=== PATIENT | female | born 1965 | race Caucasian/White ===

== ENCOUNTER 2020-07-13 20:27 | Emergency (ER) | payer BC ==
[~2020-07-13] VITALS: Ht 162.6 cm; Wt 93.7 kg
[2020-07-13] MEDS ORDERED: ondansetron 4mg rapidly disintigrating tab PO ONE (22:20)
[2020-07-14] MEDS ORDERED: ONDA4TAB6 PO (00:09)
[2020-07-14 00:18] VITALS: BP 135/75
== END 2020-07-14 00:12 | disposition home or self-care (01) ==
LOC: ER 20:28
DX: S06.0X0A Concussion without loss of consciousness, initial encounter (principal); S80.812A Abrasion, left lower leg, initial encounter; R51.9 Headache, unspecified; R11.0 Nausea; Z88.5 Allergy status to narcotic agent; Z79.899 Other long term (current) drug therapy; W19.XXXA Unspecified fall, initial encounter; Y93.89 Activity, other specified; Y92.89 Other specified places as the place of occurrence of the external cause; Y99.8 Other external cause status
CPT/HCPCS: 70450; 70486; 72125; 99285

== ENCOUNTER → 2023-07-05 | Outpatient (CLI) | payer BC ==
[~2023-07-05] MED LIST: ONDA4TAB6 PO
== END | disposition home or self-care (01) ==
LOC: RAD 14:49
PROVIDERS: ATTEND Pediatrics Sports Medicine
DX: M23.321 Other meniscus derangements, posterior horn of medial meniscus, right knee (principal); M71.21 Synovial cyst of popliteal space [Baker], right knee; M25.561 Pain in right knee; M25.461 Effusion, right knee; M25.361 Other instability, right knee
CPT/HCPCS: 73721

== ENCOUNTER 2024-03-18 16:53 | Emergency (ER) | payer BC ==
[~2024-03-18] VITALS: Ht 162.6 cm; Wt 111.8 kg
[2024-03-18 17:21] LABS: BASOPHILS # (AUTO) 0.1 X10'3 (0-0.2); BASOPHILS % (AUTO) 0.7 % (0-1); EOSINOPHILS # (AUTO) 0.2 X10'3 (0-0.9); EOSINOPHILS % (AUTO) 1.8 % (0-6); HEMATOCRIT 44.5 % (35.0-45.0); HEMOGLOBIN 14.9 g/dl (12.0-16.0); LYMPHOCYTES # (AUTO) 2.8 X10'3 (1.1-4.8); LYMPHOCYTES % (AUTO) 23.5 % (21-51); MEAN CORPUSCULAR HEMOGLOBIN 32.1 PG (27.0-31.0); MEAN CORPUSCULAR HGB CONC 33.4 g/dL (33.0-36.5); MEAN CORPUSCULAR VOLUME 96.3 FL (78-98); MEAN PLATELET VOLUME 9.4 FL (7.4-10.4); MONOCYTES # (AUTO) 0.9 X10'3 (0-0.9); MONOCYTES % (AUTO) 7.4 % (2-12); NEUTROPHILS # (AUTO) 7.8 X10'3 (1.8-7.7); NEUTROPHILS % (AUTO) 66.6 % (42-75); PLATELET COUNT 345 X10'3 (140-440); RED BLOOD COUNT 4.62 X10'6 (4.20-5.60); RED CELL DISTRIBUTION WIDTH 13.5 % (11.5-14.5); WHITE BLOOD COUNT 11.7 X10'3 (4.5-11.0)
[2024-03-18 17:33] LABS: ALANINE AMINOTRANSFERASE 20 U/L (12-78); ALBUMIN/GLOBULIN RATIO 1.1 (1.1-1.5); ALKALINE PHOSPHATASE 84 IU/L (46-116); ANION GAP 6 (8-16); ASPARTATE AMINO TRANSFERASE 20 U/L (10-37); BILIRUBIN,TOTAL 0.4 MG/DL (0.1-1.0); BLOOD UREA NITROGEN 22 MG/DL (7-18); BUN/CREATININE RATIO 16.8 (10.0-20.0); CALCIUM 9.6 MG/DL (8.5-10.1); CHLORIDE 105 MMOL/L (99-107); CREATININE 1.31 MG/DL (0.40-0.90); GLUCOSE 106 MG/DL (70-104); LIPASE 38 U/L (16-77); POTASSIUM 4.1 MMOL/L (3.5-5.1); SODIUM 140 MMOL/L (135-145); TOTAL PROTEIN 7.8 G/DL (6.4-8.2); eCRCL 40 ML/MIN; eGFR 42 ML/MIN
[2024-03-18] MEDS: ondansetron/PF 4mg/2ml inj IV ONE (19:47)
[2024-03-18] MEDS: fentaNYL/PF 50MCG/1 ML 2ML syringe IV ONE (19:47)
[2024-03-18] MEDS: normal saline 1000ml 1,000 ML IV ONE (19:50)
[2024-03-18] MEDS: acetaminophen 1,000mg/100ml IV 100 ML IV ONE (19:50)
[2024-03-18] MEDS: ketorolac trometh 15mg/ml vial 15 MG/ML ML IV ONE (20:41)
[2024-03-18] MEDS: OXYcodone (OXYCONTIN) Ext Release 15 MG TAB.SR.12H PO ONE (20:42)
[2024-03-18] MEDS: ondansetron 4mg rapidly disintigrating tab PO ONE (21:43)
[2024-03-18 21:52] LABS: BILIRUBIN,URINE NEGATIVE (Neg); CLARITY,URINE SLIGHTLY CLOUDY (Clear); COLOR,URINE YELLOW (Yellow); GLUCOSE, URINE NEGATIVE (Neg); KETONES,URINE 15 mg/dl (Neg); LEUKOCYTE ESTERASE ,URINE NEGATIVE (Neg); NITRITES, URINE NEGATIVE (Neg); OCCULT BLOOD,URINE TRACE-INTACT (Neg); PROTEIN,URINE NEGATIVE (Neg); UROBILINOGEN,URINE 0.2 E.U/dL (0.2-1.0)
[2024-03-18 21:53] LABS: UA COLLECTION TYPE NON-SPECIFIED
[2024-03-18 21:57] LABS: BACTERIA,URINE FEW /HPF (Neg); SQUAMOUS EPITHELIAL CELL,UR FEW /LPF (FEW); WBC,URINE 0-4 /HPF (0-4)
[2024-03-18 22:02] LABS: URINE HCG NEGATIVE (NEG)
[2024-03-18] MEDS ORDERED: FLO0.4C PO (22:10)
[2024-03-18] MEDS ORDERED: ONDA-245 PO (22:10)
[2024-03-18] MEDS ORDERED: HYDR-3965 PO (22:10)
[2024-03-18] MEDS: HYDROcodone/acetaminophen 10/325mg tab PO ONE (22:20)
[2024-03-18] MEDS: tamsulosin 0.4mg capsule PO ONE (22:20)
[2024-03-18 22:24] VITALS: BP 141/86; PULSE 58; RESP 18; TEMP 98.5; O2SAT 97
== END 2024-03-18 22:28 | disposition home or self-care (01) ==
LOC: ER 16:53
DX: N20.0 Calculus of kidney (principal); Z79.899 Other long term (current) drug therapy; Z88.5 Allergy status to narcotic agent
CPT/HCPCS: 36415; 74176; 80053; 81001; 81025; 83690; 85025; 96374; 96375; 99285; J0131; J1885; J2405; J3010; J7030

== ENCOUNTER 2024-11-03 13:56 | Emergency (ER) | payer BC ==
[~2024-11-03] VITALS: Ht 162.6 cm; Wt 107.2 kg
[~2024-11-03 13:56] MED LIST changes: +ONDA-245 PO
[2024-11-03 14:01] VITALS: BP 168/86; PULSE 107; RESP 18; TEMP 98.9; O2SAT 97
--- NOTE | 2024-11-03 14:33 | Physician Documentation ---
History of Present Illness ~ Chief Complaint: Bite-animal Stated Complaint: DOG BITE Time Seen by MD: 14:09 OK to notify your PCP?: Yes Primary Medical Doctor: JOSSE Source: patient Mode of Arrival: POV Exam Limitations: no limitations HPI 59-year-old female presents after she broke up a dog fight between her dogs and has multiple superficial dog bites to bilateral upper extremities. She has not take any blood thinners. Both dogs are vaccinated. She is unsure when her last tetanus shot was. Tetanus within 5 years?: No Medication Reconciliation Allergies: Coded Allergies: codeine (Verified Allergy, Unknown, 11/03/24) Scheduled Amox Tr/Potassium Clavulanate (Augmentin 875-125 Tablet), 1 TAB PO Q12H Ondansetron 8mg ODT (Ondansetron Odt), 1 TAB PO Q6H Ondansetron Hcl (Zofran), 1 TAB PO Q6H Past Medical History Past Medical History: No Pertinent History Past Surgical History: noncontributory Drug Use: none Lives In: Home Review of Systems All Other Systems at this time: Reviewed and Negative Physical Exam Vital Signs: RN Vital Signs have been reviewed: Yes, Temperature: 98.9, Source: Oral, Heart Rate: 107, Respiratory Rate: 18, BP: 168/86, Pulse Oximetry: 97, Weight: 107.250 Oxygen Flow Rate: 0 Pulse Oximetry Reflects: adequate oxygenation Physical Exam General: Alert, no apparent distress. HEENT: PERRL, EOMI, no injection, moist mucous membranes. Neck: Full range of motion. Respiratory: Lungs clear, no respiratory distress. Chest: No accessory muscle use. Cardiovascular: Regular rate and rhythm, no murmurs. Gastrointestinal: Soft, nontender, nondistended. Bowels sounds present. Extremities: Full range motion of bilateral arms and hands, no deformities noted. Neurologic: Oriented x4. Psychiatric: Normal mood and affect. Skin: Normal color, warm and dry. 1 laceration to right wrist: approx 4 cm in length. 3 lacerations approx 1-2 cm to left hand. 1 laceration and 1 puncture wound to left upper arm with hematoma present. Procedures Procedures Laceration repair of right hand, left hand and left upper arm. Verbal consent obtained for procedure. Laceration/Wound Repair Laceration/Wound Repair : Anesthesia: Lidocaine w/ Epi Prep: irrigated by nurse Irrigated w/ Saline (mls): 1000 Debrided: minimal Undermining: none Margins: flaps aligned Foreign Body: not identified Repaired: skin Wound Repaired With: sutures Suture Size/Type: 4-0, ethilon Number of Superficial Sutures: 6 Dressing Applied: simple, non-adherent Sling Applied?: No Tolerated Procedure Well?: yes, no complications Procedure Note I loosely approximated the laceration at right wrist (2 sutures) and 3 lacerations to left hand (3 sutures total, one in each laceration) and 1 laceration to left upper arm (1 suture) with loose simple interrupted sutures. Progress Results/Orders Reviewed/noted all lab results: Yes Results/Orders Orders - EBONIE GILL Laceration/I&D Tray Set Up (11/03/24 ) Completed Orders - EBONIE GILL Tetanus/Pertuss/Diph Acell/Pf (Boostrix (11/03/24 14:35) Lidocaine 1% W/Epi 1:100,000 (Xylocaine (11/03/24 14:35) Medications Received in ER Medications (Trade) Dose Ordered Sig/Maxx Route PRN Reason Start Time Stop Time Status Last Admin Dose Admin (Boostrix vaccine syringe) 0.5 ml ONCE ONCE IMVAC 11/03/24 14:35 11/03/24 14:36 DC 11/03/24 14:38 0.5 ML Vital Signs 11/03/24 14:01 Temp 98.9 Pulse 107 Resp 18 B/P (MAP) 168/86 Pulse Ox 97 O2 Flow Rate 0 Medical Decision Making Additional info obtained from: old records, family Findings The patient presents with multiple lacerations from dog bites. She is able to move all extremities. He was bitten by dogs who were up-to-date on the rabies vaccines so no rabies prophylaxis was given. I updated her tetanus vaccine as she is unsure when her last one was. She has already taken amoxicillin 500 mg 3 times daily for an infection in her tooth and she has been taking this medication for the past 2 days. I will switch her over to Augmentin for better coverage of both the tooth and the dog bite wounds. I loosely approximated the edges of the lacerations to the right hand, left hand and left upper arm these were quite open. We discussed that this wounds will have to heal from secondary closure. We discussed wound care instructions and when to have sutures removed. Discussed the follow up plan as well. Differential Dx:Considerations: Include: Cellulitis, Hematoma, Retained foreign body Departure Disposition: 01 HOME / SELF CARE / HOMELESS Impression: Primary Impression: Dog bite Condition: Stable Discharge Instructions: Animal Bite, Adult Additional Instructions: Please keep wounds clean and dry. Please refrain from swimming, [place] water or other sources of unclean water. Can place triple antibiotic ointment to suture sites. You have sutures that will need to be removed in the next 10-12 days. You have 2 sutures to the right wrist, 3 sutures total to left hand, 1 suture to left upper arm. You may return back here, go to primary care provider or go to an urgent care to have the sutures removed. You have been placed on antibiotics or please take the entire antibiotic course. If you notice any signs of worsening infection please be seen as you may need a secondary antibiotic. Referrals: NO PRIMARY CARE PROVIDER (PCP) Prescriptions Amox Tr/Potassium Clavulanate (Augmentin 875-125 Tablet) 1 Each Tablet 1 TAB PO Q12H for 7 Days, #14 TAB Prov: EBONIE GILL 11/03/24 Education Educated: Patient Educated regarding: diagnosis, treatment, prognosis, need for follow up Additional Comment Medical Screen Exam This patient recieved a medical screening examination. After reviewing the individual's medical complaints with presenting symptoms and performing an appropriate physical examination, it was determined that no immediate life- threatening emergency medical condition is present. This individual is also not a women having contractions. Signature Scribe Signature: . Attestation: Scribed for Ebonie Gill by Ebonie Whitfield NP . 11/03/24 18:08 Parts of this note were created using [employer] voice recognition software program. While efforts were made to correct any mistakes made by this voice recognition software program, nonsensical phrases may remain in this note. In addition, there may be errors and syntax, grammar, content and spelling. EBONIE GILL Nov 03, 2024 14:33
[2024-11-03] MEDS: TETanus/Pertussis (Acell)/Diphther VAC/PF (Tdap-Adult) 0.5ml syringe IMVAC ONE (14:38)
[2024-11-03] MEDS: LIDOcaine 1% W/epiNEPHrine 1:100,000 20ml vial SQ ONE (14:47)
[2024-11-03] MEDS ORDERED: AMOX-117 PO (14:57)
== END 2024-11-03 16:12 | disposition home or self-care (01) ==
LOC: ER 13:58
DX: S61.411A Laceration without foreign body of right hand, initial encounter (principal); S61.412A Laceration without foreign body of left hand, initial encounter; Z88.5 Allergy status to narcotic agent; Z79.899 Other long term (current) drug therapy; W54.0XXA Bitten by dog, initial encounter; Y93.89 Activity, other specified; Y92.89 Other specified places as the place of occurrence of the external cause; Y99.8 Other external cause status
CPT/HCPCS: 12002; 90471; 90715; 99283; J7030; A6449

== ENCOUNTER 2025-04-04 11:47 | Emergency (ER) | payer BC ==
[~2025-04-04] VITALS: Ht 162.6 cm; Wt 108.1 kg
--- NOTE | 2025-04-04 11:57 | ELECTROCARDIOGRAPH REPORT ---
[facility] Test Date: 2025-04-04 Test Time: 11:51:14 Pat Name: CAROLYN ROMO Department: EMERGENCY ROOM Patient ID: [facility]-[id number] Room: Gender: F Director Network Development: MADDIE : 1965 Requested By: ARAMIS ORTIZ Order Number: [id number] Reading MD: Dr. Danny Meng Measurements Intervals [place] Rate: 117 P: 39 DE: 152 QRS: 28 QRSD: 79 T: 18 QT: 322 QTc: 450 Interpretive Statements Sinus tachycardia Multiform ventricular premature complexes Aberrant complex Borderline T wave abnormalities Electronically Signed On 04-05-2025 11:18:[address] Danny Meng Please click the below link to view image of tracing.
[2025-04-04 12:11] LABS: MEAN PLATELET VOLUME 9.5 FL (7.4-10.4); RED CELL DISTRIBUTION WIDTH 13.3 % (11.5-14.5)
[2025-04-04 12:33] LABS: CREATININE 0.89 MG/DL (0.40-0.90); PRO BRAIN NATRIURETIC PEPTIDE 36 PG/ML (0-125); TOTAL CARBON DIOXIDE 27.3 MMOL/L (24-32); eCRCL 57 ML/MIN; eGFR 64 ML/MIN
--- NOTE | 2025-04-04 13:12 | RADIOLOGY REPORT ---
DI CHEST,SINGLE VIEW, HISTORY: CP COMPARISON: None None TECHNICAL DATA: 1 view of the chest was obtained. FINDINGS: Lines and tubes: None Cardiomediastinal silhouette: normal Pulmonary vasculature: normal Lung expansion: normal Lung airspace: normal Lung interstitium: normal Pleura: normal Pneumothorax: no Bones: Unremarkable Other: no IMPRESSION: No acute intrathoracic abnormality.
[2025-04-04] MEDS ORDERED: iohexol 300mg/ml 100ml inj. ONE ×2 (16:34→17:58)
--- NOTE | 2025-04-04 17:28 | ELECTROCARDIOGRAPH REPORT ---
[facility] Test Date: 2025-04-04 Test Time: 17:25:29 Pat Name: CAROLYN ROMO Department: [facility] Patient ID: [facility]-[id number] Room: Gender: F Senior Python Developer: : 1965 Requested By: ARAMIS ORTIZ Order Number: [id number] Reading MD: Dr. Danny Meng Measurements Intervals [place] Rate: 75 P: 43 TN: 138 QRS: 33 QRSD: 86 T: 30 QT: 375 QTc: 419 Interpretive Statements Sinus rhythm Baseline wander in lead(s) V3 Electronically Signed On 04-05-2025 11:17:[address] Danny Meng Please click the below link to view image of tracing.
[2025-04-04] MEDS: normal saline 1000ml 1,000 ML IV ONE (18:17)
--- NOTE | 2025-04-04 18:39 | RADIOLOGY REPORT ---
PROCEDURE: CT CT CHEST ABDOMEN PELVIS 04/04/2025 05:51 PM INDICATION: Concern for blackage, food bolus Comparison Study: CT CT ABDOMEN PELVIS on DOS: 03/18/24 TECHNIQUE: Axial images were obtained and reformatted in coronal and sagittal planes. All CT scans at this medical facility are performed using dose modulation techniques as appropriate to a performed exam including the following: Automated exposure control was utilized; adjustment of the MA and/or KV according to patient size; and use of iterative reconstruction technique. CT Dose: CTDI volume is 36.75 mGy. Dose-length product is 2404.73 mGy*cm FINDINGS: Chest: The Upper Lung is outside [id number]. Heart size is within normal limits. No evidence of aortic aneurysm or dissection. The pulmonary trunk is normal in size. No significant mediastinal lymphadenopathy. No pneumothorax, pleural effusion or focal airspace consolidation of the visualized lungs. The soft tissues unremarkable. No evidence of acute osseous abnormalities. Abdomen and Pelvis: Liver, spleen, gallbladder, and adrenal glands are unremarkable. Hypodensity of the pancreatic head which may be from fatty infiltration. Otherwise, the pancreas is unremarkable. Mild left renal pelviectasis. Left renal scarring. Otherwise, kidneys, ureters and urinary bladder are unremarkable. Status post hysterectomy. Mild wall thickening of the distal esophagus. Small hiatal hernia. Bowel loops unremarkable. Appendix is unremarkable. Moderate to large amount of fecal material within the colon. No evidence of intraperitoneal free air or free fluid. No evidence of aortic aneurysm or dissection. Minimal atherosclerotic calcification of the aorta. No significant lymphadenopathy. The soft tissues are unremarkable. No evidence of acute osseous abnormalities. Mild chronic loss of superior vertebral body height of L2 on L3. Diffuse demineralization. Sclerotic focus over the right femoral head which may represent a small bone island with a Blastic lesion not excluded. IMPRESSION: The lung apices and lower neck are outside the field of view. Otherwise, no evidence of acute intrathoracic abnormalities. No food bolus is noted within the visualized esophagus. The visualized airways are patent. Small hiatal hernia. Mild wall thickening of the distal esophagus. Correlate for esophagitis. Moderate to large amount of fecal material within the colon. Mild Left renal pelviectasis with nonobstructing calculus are noted.
[2025-04-04] MEDS: ondansetron/PF 4mg/2ml inj IV ONE (19:25)
[2025-04-04] MEDS: glucagon, human recombinant 1mg kit IV ONE (19:26)
[2025-04-04] MEDS: acetaminophen 1,000mg/100ml IV 100 ML IV SCH (19:33)
--- NOTE | 2025-04-04 20:33 | Physician Documentation ---
History of Present Illness ~ Chief Complaint: Shortness of Breath Stated Complaint: SOB/CHEST PAIN Time Seen by MD: 16:11 Primary Medical Doctor: J[facility] Patient is a 60-year-old female that presents to the emergency department for evaluation of acute onset of vomiting with fluid intake. Patient reports that she ate a piece of turkey earlier today did not report feeling like the turkey was stuck or that she had difficulty passing the turkey into her stomach. Patient reports that she developed the hiccups shortly after eating the turkey attempted to drink some water at that time was unable to get the water all the way down her esophagus and the watery immediately started coming back up her throat. Patient denies vomiting reports that the water seem to be blocked by something in her throat and was pulling back up in her throat and coming out of her mouth. Patient reports that she panicked at that time she felt like she could not breathe she was coughing gasping attempted to use her inhaler she thought she was having a asthma attack. Patient presented immediately to the emergency room and has not attempted to drink or eat anything since that time. Patient reports a mild headache but denies any other symptoms at this time. Medication Reconciliation Allergies: Coded Allergies: codeine (Verified Allergy, Unknown, 04/04/25) Scheduled Ondansetron 8mg ODT (Ondansetron Odt), 1 TAB PO Q6H Ondansetron Hcl (Zofran), 1 TAB PO Q6H Past Medical History Past Medical History: No Pertinent History Past Surgical History: noncontributory Smoking Status: Never smoker Drug Use: none Lives In: Home Review of Systems ROS As stated above in the HPI, otherwise all systems are reviewed and negative. Physical Exam Vital Signs: Temperature: 98.0, Source: Oral, Heart Rate: 86, Respiratory Rate: 17, BP: 124/67, Pulse Oximetry: 96, Weight: 108.100 Oxygen Flow Rate: 0 Physical Exam VITALS: Reviewed and as above. GENERAL: Alert, no apparent distress. HEENT: Normocephalic, atraumatic, PERRL, EOMI, dry mucosa, no erythema, patient is currently unable to swallow liquids due to a presumed obstruction or blockage of some type. RESPIRATORY: Lungs clear, normal breath sounds, no respiratory distress. CHEST: No accessory muscle use, no retractions CV: Regular rate, rhythm, no edema, no murmur, No: JVD GI: Soft, non-tender, bowels sounds present, no rebound, guarding, or rigidity BACK: No CVA tenderness, or swelling MUSCULOSKELETAL No deformities, no edema SKIN: Warm and dry, no rash NEURO: Oriented x4, No motor or sensory deficit PSYCH: Normal mood and affect, no agitation Progress Results/Orders Results/Orders Orders - JOVANNY MAHAJAN COT ASSEMBLER * Blood Glucose Assessment * ACHS (04/04/25 17:22) Ct Chest Abdomen Pelvis (04/04/25 18:10) Acetaminophen 1,000mg/100ml Iv (Ofirmev (04/04/25 20:00) Completed Orders - JOVANNY MAHAJAN COT ASSEMBLER Iohexol 300mg/Ml 100ml Inj. (Omnipaque-3 (04/04/25 16:34) Normal Saline 1000ml (0.9% Sodium Chlori (04/04/25 17:25) Ct Chest Abdomen Pelvis (04/04/25 18:10) Iohexol 300mg/Ml 100ml Inj. (Omnipaque-3 (04/04/25 17:58) Glucagon, Human Recombinant (Glucagen In (04/04/25 18:55) Ondansetron Inj. (Zofran 4mg/2ml Vial) (04/04/25 18:55) Medications Received in ER Medications (Trade) Dose Ordered Sig/Maxx Route PRN Reason Start Time Stop Time Status Last Admin Dose Admin Sodium Chloride 1,000 ml @ 1,000 mls/hr ONCE ONCE IV 04/04/25 17:25 04/04/25 18:24 DC 04/04/25 18:17 1,000 MLS/HR (Glucagen inj) 1 mg ONCE ONCE IV 04/04/25 18:55 04/04/25 18:57 DC 04/04/25 19:26 1 MG (Zofran 4mg/2ml vial) 4 mg ONCE ONCE IV 04/04/25 18:55 04/04/25 18:57 DC 04/04/25 19:25 4 MG Acetaminophen 100 ml @ 400 mls/hr Q6H IV 04/04/25 20:00 04/05/25 19:07 04/04/25 19:33 400 MLS/HR Vital Signs 12/2804/04/25 04/04/25 04/04/25 11:56 16:19 16:21 16:23 Temp 97.7 98.0 Pulse 110 90 Resp 20 16 16 B/P (MAP) 167/89 136/86 (103) Pulse Ox 98 99 99 O2 Delivery Room Air* O2 Flow Rate 0 0 0 FiO2 21 04/04/25 04/04/25 04/04/25 04/04/25 18:32 20:03 22:19 22:20 Temp 98.0 98.0 97.0 Pulse 86 86 111 99 Resp 14 17 14 15 B/P (MAP) 124/74 (91) 124/67 (86) 138/61 (86) 138/61 (86) Pulse Ox 97 96 98 98 O2 Delivery Room Air Room Air O2 Flow Rate 0 0 04/04/25 04/04/25 04/04/25 22:30 22:40 22:49 Temp 98.1 Pulse 74 70 72 Resp 14 15 14 B/P (MAP) 122/68 (86) 113/63 (80) 116/64 (81) Pulse Ox 98 97 97 O2 Delivery Room Air Room Air Room Air O2 Flow Rate 0.0 FiO2 21 Laboratory Tests Test 04/04/25 11:55 04/04/25 13:48 04/04/25 17:48 White Blood Count 7.6 Red Blood Count 4.53 Hemoglobin 14.3 Hematocrit 42.0 Mean Corpuscular Volume 92.9 Mean Corpuscular Hemoglobin 31.6 H Mean Corpuscular Hemoglobin Concent 34.0 Red Cell Distribution Width 13.3 Platelet Count 301 Mean Platelet Volume 9.5 Neutrophils (%) (Auto) 58.0 Lymphocytes (%) (Auto) 31.3 Monocytes (%) (Auto) 7.6 Eosinophils (%) (Auto) 2.1 Basophils (%) (Auto) 1.0 Neutrophils # (Auto) 4.4 Lymphocytes # (Auto) 2.4 Monocytes # (Auto) 0.6 Eosinophils # (Auto) 0.2 Basophils # (Auto) 0.1 CBC Comment Sodium Level 143 Potassium Level 4.2 Chloride Level 108 H Carbon Dioxide Level 27.3 Anion Gap 8 Blood Urea Nitrogen 17 Creatinine 0.89 Estimated GFR/1.73 m2 64 BUN/Creatinine Ratio 19.1 Glucose Level 97 Calcium Level 9.6 Troponin I High Sensitivity < 4 L < 4 L Troponin I High Sens Percent Delta Troponin I Hi Sens Absolute Change Pro-B-Type Natriuretic Peptide 36 Albumin 3.8 Chemistry Comments Glucometer 87 Medical Decision Making Additional information obtaine: other Findings HISTORY OF PRESENT ILLNESS: 60-year-old female presenting to the emergency department with acute onset inability to tolerate oral intake following ingestion of turkey. Patient reports eating turkey earlier today without initial difficulty or sensation of food becoming stuck. Shortly after eating, patient developed hiccups and attempted to drink water. Patient was unable to swallow the water, which immediately regurgitated back up the esophagus and out of the mouth. Patient denies true vomiting but describes sensation of water being blocked in the throat and passively returning. Patient experienced associated panic, dyspnea, coughing, and gasping, initially concerning for asthma exacerbation, for which she used her inhaler. Patient presented immediately to the emergency department and has remained NPO since symptom onset. Patient reports mild headache but denies chest pain, odynophagia, hematemesis, or other symptoms. EMERGENCY DEPARTMENT COURSE: Patient underwent comprehensive evaluation including laboratory studies (unremarkable), chest radiograph (negative), cardiac workup (negative), and CT chest/abdomen (negative except for possible distal esophagitis and small hiatal hernia). Initial trial of oral liquids failed with immediate regurgitation. Patient was treated with 1 mg IV glucagon, acetaminophen, and ondansetron. After 30-45 minute observation period, repeat trial of liquids again failed with persistent inability to tolerate oral intake. ASSESSMENT AND PLAN: This patient presents with complete esophageal food bolus impaction requiring emergent endoscopic intervention. [1] The clinical presentation of acute-onset dysphagia with complete inability to tolerate secretions following food ingestion is consistent with esophageal food impaction, which represents a gastrointestinal emergency. [2] Indications for Emergent Endoscopy: According to World Society of Emergency Surgery guidelines, emergent flexible endoscopy (preferably within 2 hours, at latest within 6 hours) is recommended for food bolus ingestion with complete esophageal obstruction due to risk of aspiration and perforation. [1] This patient meets criteria for emergent intervention given complete obstruction and inability to tolerate secretions. [2] Failed Conservative Management: Glucagon administration was appropriate as an initial conservative measure, though evidence demonstrates limited efficacy. Recent systematic reviews and randomized controlled trials show glucagon is no more effective than placebo for esophageal food impaction resolution, with success rates of approximately 30- 40% when effective. [3-5] This patient appropriately failed two trials of oral intake following glucagon administration, confirming need for definitive endoscopic management. [6] Underlying Pathology Considerations: CT findings of distal esophagitis and hiatal hernia are relevant, as underlying esophageal disorders are found in up to 25% of patients with food impaction. [1] The most commonly associated disorders include esophageal stricture, hiatal hernia, Schatzki ring, eosinophilic esophagitis, achalasia, and malignancy. [1] Given the strong association between esophageal food impaction and eosinophilic esophagitis (found in up to 9-27% of cases), esophagoga stroduodenoscopy with biopsy is recommended, particularly for diagnostic evaluation of underlying pathology. [1][7] Risk Assessment: Overall complication rate for esophageal food impaction is approximately 10%, with perforation risk of 2%. [8] The endoscopic push technique has been shown to be safe and effective with up to 90% success rate and low complication rates. [1][9] Time from impaction to endoscopy does not appear to significantly impact adverse event rates in recent studies, though emergent intervention remains standard of care for complete obstruction. [10] Plan: Gastroenterology consultation obtained. Patient to proceed to operating room for emergent upper endoscopy with therapeutic intent for food bolus removal and diagnostic evaluation including esophageal biopsies to assess for eosinophilic esophagitis and other underlying pathology. Airway protection with endotracheal intubation will be utilized given complete obstruction and aspiration risk. [1] Heart Score: 2 Differential Dx:Considerations: Include: anxiety, asthma, bronchitis, cardiogenic shock, CHF, COPD, dysrhythmia, hypertension, accelerated, hypertension, essential, hypertension, malignant, hyperventilation, hyponatremia, myocardial infarction, panic attack, pneumonia, pneumonitis, pneumothorax, PSVT, pulmonary embolism, respiratory distress, respiratory failure, sinusitis, upper resp. infection, other Departure Disposition: 01 HOME / SELF CARE / HOMELESS Impression: Primary Impression: Esophagitis Additional Impression: Distal esophageal obstruction due to foreign body Condition: Stable Additional Instructions: DISCHARGE INSTRUCTIONS AFTER UPPER ENDOSCOPY Your Procedure: You underwent an upper endoscopy (EGD) today to evaluate for a possible food blockage in your esophagus (swallowing tube). During the procedure, no food blockage or obstruction was found. It appears that the blockage passed on its own before the procedure. A small hiatal hernia (where part of the stomach pushes through the diaphragm) was noted during the examination. Activity: You may resume your normal activities as tolerated Do not drive or operate machinery for 24 hours after receiving sedation Avoid making important decisions or signing legal documents for 24 hours Diet: You may resume your normal diet as tolerated Start with liquids and soft foods, then advance to your regular diet as comfortable Chew your food thoroughly and eat slowly Avoid large bites of meat or other foods that could cause blockage Medications: Resume all your regular medications unless otherwise instructed Follow-Up Care: Primary Care Provider: Schedule an appointment with your primary care provider Gastroenterology: You will need to follow up with Gastroenterology to discuss your hiatal hernia and determine if any additional evaluation or treatment is needed WHEN TO SEEK IMMEDIATE MEDICAL ATTENTION - RETURN TO THE EMERGENCY DEPARTMENT IF YOU EXPERIENCE: Severe chest pain or pressure Difficulty breathing or shortness of breath Difficulty swallowing or inability to swallow liquids Vomiting blood or material that looks like coffee grounds Black, tarry stools or bright red blood in stools Severe abdominal pain Fever over 101F (38.3C) Persistent vomiting Recurrence of food getting stuck when swallowing Neck swelling or pain Any other symptoms that concern you What to Expect: Mild sore throat is common and should improve within 1-2 days You may experience some bloating or gas from the air used during the procedure These symptoms should resolve within 24 hours Important Notes: Food impaction can be associated with underlying esophageal conditions, which is why follow-up with Gastroenterology is important If you experience recurrent episodes of food getting stuck, seek medical attention promptly Questions or Concerns: If you have any questions or concerns that do not require emergency attention, please contact your primary care provider or the Gastroenterology office during regular business hours. Referrals: NO PRIMARY CARE PROVIDER (PCP) Education Educated: Patient Educated regarding: diagnosis, treatment, need for follow up Signature Scribe Signature: A Attestation: Scribed for Jovanny Mahajan by EMILY Lovell . 04/04/25 23:28 JOVANNY MAHAJAN Apr 04, 2025 20:33
[2025-04-04] MEDS ORDERED: ondansetron/PF 4mg/2ml inj IV PRN (21:50)
[2025-04-04] MEDS ORDERED: HYDROmorphone/PF 0.2 MG/ML SYRINGE IV PRN ×2 (21:50)
[2025-04-04] MEDS ORDERED: ringers solution, lacted 1,000 ML IV SCH (21:50)
[2025-04-04] MEDS ORDERED: acetaminophen 1,000mg/100ml IV 100 ML IV PRN (21:50)
[2025-04-04] MEDS ORDERED: labetalol 20mg/4ml (5mg/ml) syringe IV PRN (21:50)
[2025-04-04] MEDS ORDERED: hydrALAZINE 20mg/ml inj. IV PRN (21:50)
[2025-04-04] MEDS ORDERED: morphine 4 MG/ML inj SYRINge IV PRN (21:50)
[2025-04-04] MEDS ORDERED: midazolam 1 mg/ML 2ml injection ONE (21:58)
[2025-04-04] MEDS ORDERED: fentaNYL/PF 50MCG/1 ML 2ML syringe ONE (21:58)
[2025-04-04] MEDS ORDERED: ondansetron/PF 4mg/2ml inj ONE (22:07)
[2025-04-04] MEDS ORDERED: propofol inj 20 ML IV ONE (22:07)
[2025-04-04] MEDS ORDERED: dexamethasone sod phosphate 4mg/ml inj. ONE (22:07)
[2025-04-04] MEDS ORDERED: LIDOcaine 2% (20mg/ml) 5ml vial ONE (22:08)
[2025-04-04] MEDS ORDERED: rocuronium 10mg/ml inj IV ONE (22:08)
[2025-04-04] MEDS ORDERED: glycopyrrolate 0.2mg/ml inj ONE (22:14)
[2025-04-04 22:19] VITALS: BP 138/61; PULSE 111; RESP 14; O2SAT 98
[2025-04-04 22:20] VITALS: BP 138/61; PULSE 99; RESP 15; O2SAT 98
[2025-04-04 22:30] VITALS: BP 122/68; PULSE 74; RESP 14; O2SAT 98
[2025-04-04 22:40] VITALS: BP 113/63; PULSE 70; RESP 15; O2SAT 97
[2025-04-04 22:49] VITALS: BP 116/64; PULSE 72; RESP 14; O2SAT 97
[2025-04-04 23:26] VITALS: BP 118/65; PULSE 72; RESP 16; TEMP 98.9; O2SAT 99
--- NOTE | 2025-04-06 14:42 | PATHOLOGY REPORT ---
[facility] [address] [place] [address] SURGICAL PATHOLOGY REPORT CaseNumber: [id number] Surgeon:Merle Au M.D. CLINICAL INFORMATION CLINICAL INFORMATION: Shortness of breath and chest pain. DIAGNOSIS DIAGNOSIS: GASTRIC ANTRUM, BIOPSY - NO SIGNIFICANT INFLAMMATION, EDEMA, OR VASCULAR CONGESTION - NO INTESTINAL METAPLASIA BY PAS STAINING - NO DYSPLASIA OR MALIGNANCY - NO H. PYLORI ORGANISMS ARE HIGHLIGHTED BY IMMUNOHISTOCHEMISTRY MICROSCOPIC DESCRIPTION MICROSCOPIC DESCRIPTION: Reviewed is a single H&E-stained slide showing serial sections and levels of two small fragments of gastric antral-type mucosa. There is no significant inflammation, edema, or vascular congestion. There is no intestinal metaplasia by PAS staining. There are no dysplastic or neoplastic features. Also, no H. pylori organisms are highlighted by immunohistochemistry. GROSS DESCRIPTION GROSS DESCRIPTION: Received in a container of formalin labeled with the patient's name, number, and "antrum BX" is a 0.7 x 0.2 x 0.1 cm piece of dela cruz tissue. The specimen is entirely submitted as A1. The time at which the specimen was removed was 1010. The time at which the specimen was placed in formalin was 1011. Electronically signed by: Jaya Manzano M.D. 04/06/2025 2:02:00 PM
== END 2025-04-04 23:39 | disposition home or self-care (01) ==
LOC: ER 11:48
DX: T18.198A Other foreign object in esophagus causing other injury, initial encounter (principal); K20.90 Esophagitis, unspecified without bleeding; K22.2 Esophageal obstruction; Z88.5 Allergy status to narcotic agent; Z79.899 Other long term (current) drug therapy; W44.8XXA Other foreign body entering into or through a natural orifice, initial encounter; Y93.89 Activity, other specified; Y92.89 Other specified places as the place of occurrence of the external cause; Y99.8 Other external cause status
CPT/HCPCS: 36415; 43247; 71045; 71260; 74177; 80048; 82948; 83880; 84484; 85025; 93005; 96361; 96374; 96375; 99285; J0131; J1100; J1610; J2003; J2250; J2405; J2704; J2710; J3010; J3490; J7030; Q9967; Z7512; A4615